=== PATIENT | female | born 1950 | race Caucasian/White ===

== ENCOUNTER → 2022-11-16 12:05 | Outpatient (CLI) | payer MEDICARE, OTHER, SELFPAY ==
--- NOTE | 2022-11-16 | DI.MRI.S_ITS ---
PROCEDURE: MR ANKLE RT WO CON INDICATIONS: Achilles tendinitis, right leg TECHNIQUE: Noncontrast sagittal T1 spin echo and T2 fast spin echo with fat saturation, axial proton density fast spin echo and T2 fast spin echo with fat saturation, coronal T1 spin echo and T2 fast spin echo with fat saturation through the ankle/hindfoot. COMPARISON: None. FINDINGS: Image quality: Excellent. 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 No bone marrow contusions or fractures. No hindfoot coalitions. No osteochondral injuries of the talar dome. No pathologic joint effusions. Medial structures: The posterior tibialis tendon is mildly thickened with small amount of fluid distending tendon sheath at the level of distal talus and talonavicular joint. flexor digitorum longus, and flexor hallucis longus tendons are intact. The posterior tibial neurovascular bundle appears normal within the tarsal tunnel, without extrinsic mass effect. The deep layer (anterior and posterior tibiotalar ligaments) and superficial layer (tibionavicular, tibiospring, and tibiocalcaneal ligaments) of the deltoid ligament appear normal. The spring ligament components (superomedial calcaneonavicular, medioplantar oblique calcaneonavicular, and inferoplantar longitudinal ligaments) are intact. Lateral structures: The anterior talofibular, calcaneofibular, and posterior talofibular ligaments appear intact. More superiorly, the anterior and posterior tibiofibular ligaments appear intact, as is the intermalleolar ligament. The tibiofibular syndesmosis is normal in width at 2 mm or less. The peroneus longus and brevis tendons demonstrate normal location and morphology. Adjacent bony peroneal tubercle and retrotrochlear prominence are normal in size. The sinus tarsi demonstrates normal fatty signal, without edema, fibrosis, or cyst formation. Visualized sinus tarsi components (cervical ligament, interosseous talocalcaneal ligament, roots of the inferior extensor retinaculum) appear normal. The calcaneonavicular and calcaneocuboid components of the bifurcate ligament appear intact. The dorsal calcaneocuboid ligament appears intact. Anterior structures: The tibialis anterior, extensor hallucis longus, and extensor digitorum longus tendons appear intact. The dorsal talonavicular ligament appears intact. Posterior and plantar structures: Low to moderate grade intrasubstance partial-thickness tear involving distal 6.8 cm segment of Achilles tendon is seen extending to its posterior calcaneal insertion. No full-thickness Achilles tendon rupture. Medial and lateral bands of the plantar fascia are of normal thickness. No abductor digiti quinti muscle atrophy to suggest العلي neuropathy. IMPRESSION: 1. Mild midfoot and hindfoot joint osteoarthritis. No fracture or dislocation. No osteochondral injuries of talar dome. 2. Moderate grade tendinosis and intrasubstance partial-thickness tear involving distal 6.8 cm segment of Achilles tendon. No full-thickness Achilles tendon rupture. 3. Low-grade tenosynovitis involving posterior tibialis tendon as above. 4. Medial and lateral ankle ligaments are intact. Dictated by: José Luis Joyner M.D. on 11/16/2022 at 15:55 Approved by: José Luis Joyner M.D. on 11/16/2022 at 16:16
== END ==
PROVIDERS: PCP Physician Assistant Medical; Referring Provider Orthopaedic Surgery Foot and Ankle Surgery; Visit Provider Orthopaedic Surgery Foot and Ankle Surgery
DX: M76.61 Achilles tendinitis, right leg (principal); M19.071 Primary osteoarthritis, right ankle and foot; S86.011A Strain of right Achilles tendon, initial encounter; M65.861 Other synovitis and tenosynovitis, right lower leg
CPT/HCPCS: 73721